=== PATIENT | male | born 1980 | race African-American/Black ===

== ENCOUNTER 2017-08-04 21:26 | Inpatient (IN) | payer OTHER ==
[2017-08-04] MEDS ORDERED: ONDANSETRON 4 MG INJ IV (23:00)
[2017-08-04] MEDS ORDERED: ACETAMINOPHEN 325 MG TAB PO (23:00)
[2017-08-04] MEDS ORDERED: NACL 0.9% 3 ML SYG IV (23:00)
[2017-08-04] MEDS ORDERED: HYDROCODONE/APAP (5/325) TAB PO (23:00)
[2017-08-04 23:49] LABS: RETICULOCYTE RBC 3.16
[2017-08-04 23:49] LABS: RETICULOCYTE COUNT # 0.025 X10^6 (0.020-0.110); RETICULOCYTE COUNT % 0.8 % (0.5-1.5)
[2017-08-05 00:08] LABS: LACTATE DEHYDROGENASE 492 IU/L (313-618)
[2017-08-05 00:09] LABS: LACTIC ACID 1.8 mmol/L (0.5-2.0)
[2017-08-05 00:33] LABS: IRON 45 ug/dl (35-150)
[2017-08-05 00:44] LABS: % IRON SATURATION 18 % SAT (22-52); TOTAL IRON BINDING CAPACITY 250 ug/dl (241-421)
[2017-08-05 02:09] LABS: HEMOGLOBIN A1C 5.2 % (0-5.9)
[2017-08-05 02:48] LABS: WHITE BLOOD COUNT 1.6 10^3/ul (4.8-10.8)
[2017-08-05 02:48] LABS: ABNORMAL IP MESSAGE 1; HEMATOCRIT 27.4 % (42.0-52.0); MEAN CORPUSCULAR HEMOGLOBIN 28.3 pg (29.0-33.0); MEAN CORPUSCULAR HGB CONC 32.8 g/dl (32.0-37.0); MEAN CORPUSCULAR VOLUME 86.2 fl (82.0-101.0); NUCLEATED RED BLOOD CELLS% 1.3 /100WBC (0.0-0.0); PLATELET COUNT 32 10^3/UL (140-415); POSITIVE DIFF @See below; RED BLOOD COUNT 3.18 10^6/ul (4.70-6.10); RED CELL DISTRIBUTION WIDTH 17.3 % (11.5-14.5)
[2017-08-05 02:52] LABS: ADD MAN DIFF? YES; ALANINE AMINOTRANSFERASE 117 IU/L (13-69); ALBUMIN 3.5 g/dl (3.3-4.9); ALBUMIN/GLOBULIN RATIO 0.68; ALKALINE PHOSPHATASE 197 IU/L (42-121); ANION GAP 19 (8-16); ASPARTATE AMINO TRANSFERASE 35 IU/L (15-46); BILIRUBIN,INDIRECT 0.2 mg/dl (0-1.1); BILIRUBIN,TOTAL 0.2 mg/dl (0.2-1.3); BLOOD UREA NITROGEN 12 mg/dl (7-20); CALCIUM 9.2 mg/dl (8.4-10.2); CARBON DIOXIDE 21 mmol/L (21-31); CHLORIDE 108 mmol/L (97-110); CREATININE 0.78 mg/dl (0.61-1.24); GLUCOSE 96 mg/dl (70-220); PATH REVIEW? YES; POTASSIUM 4.3 mmol/L (3.5-5.1); SODIUM 144 mmol/L (135-144); TOTAL PROTEIN 8.6 g/dl (6.1-8.1)
[2017-08-05 03:59] LABS: ANISOCYTOSIS 1+ (0-0); GIANT THROMBO% (M) 3 % (0-0); LYMPHOCYTES % (M) 65 % (15-51); MONOCYTES % (M) 5 % (0-11); PLATELET ESTIMATE DECREASED; POLYCHROMASIA 2+ (0-0); REACTIVE LYMPHOCYTES #M 0.1 10^3/ul (0.0-0.0); REACTIVE LYMPHOCYTES% (M) 12 % (0-0); SEGMENTED NEUTROPHILS (M) % 18 % (39-77); SMUDGE%M 7 % (0-0)
[2017-08-05 06:10] LABS: ADD UMIC YES; UR ASCORBIC ACID NEGATIVE (NEGATIVE); UR BACTERIA FEW /HPF (NONE SEEN); UR BILIRUBIN (Dip) NEGATIVE (NEGATIVE); UR BLOOD (Dip) 2+ mg/dL (NEGATIVE); UR CLARITY CLOUDY (CLEAR); UR COLOR YELLOW (YELLOW); UR GLUCOSE (Dip) NEGATIVE (NEGATIVE); UR KETONES (Dip) NEGATIVE (NEGATIVE); UR LEUKOCYTE ESTERASE (Dip) 3+ Leu/ul (NEGATIVE); UR NITRITE (Dip) NEGATIVE (NEGATIVE); UR RBC 13 /HPF (0-5); UR SPECIFIC GRAVITY (Dip) 1.011 (1.003-1.030); UR SQUAMOUS EPITHELIAL CELL FEW /HPF (FEW); UR TOTAL PROTEIN (Dip) 1+ mg/dl (NEGATIVE); UR UROBILINOGEN (Dip) 2+ mg/dL (NEGATIVE); UR WBC > 182 /HPF (0-5)
[2017-08-05] MEDS: CEFTRIAXONE 2 GM/50 ML (PMX) 50 ML IVPB (06:42)
[2017-08-05 06:48] LABS: CANNABINOIDS Negative (NEGATIVE); OPIATES Negative (NEGATIVE)
[2017-08-05 06:49] LABS: AMPHETAMINE/METHAMPHETAMINE Negative (NEGATIVE); BARBITURATES Negative (NEGATIVE); BENZODIAZEPINES Negative (NEGATIVE); COCAINE Negative (NEGATIVE)
[2017-08-05 08:36] LABS: HAAIG REFLEX REFLEX FILED
[2017-08-05 09:05] LABS: MAGNESIUM 1.7 mg/dl (1.7-2.5)
[2017-08-05 09:05] LABS: PHOSPHORUS 4.8 mg/dl (2.5-4.9)
[2017-08-05 09:10] LABS: INR 1.23; PROTIME 15.7 Sec (11.9-14.9); PT RATIO 1.2
[2017-08-05 09:11] LABS: PARTIAL THROMBOPLASTIN TIME 37.8 Sec (25.0-35.0)
[2017-08-05 09:12] LABS: ETHANOL < 10.0 mg/dl
[2017-08-05 09:34] LABS: HEPATITIS B SURFACE ANTIGEN NEGATIVE (NEGATIVE)
[2017-08-05 09:52] LABS: HEPATITIS B CORE ANTIBODY NEGATIVE (NEGATIVE); HEPATITIS C VIRAL ANTIBODY NEGATIVE (NEGATIVE)
[2017-08-05 10:08] LABS: FOLATE 9.6 ng/ml (2.8-20.0)
[2017-08-05 10:58] LABS: HIV 1&2 ANTIBODY NEGATIVE (NEGATIVE)
[2017-08-06] MEDS: CEFTRIAXONE 2 GM/50 ML (PMX) 50 ML IVPB (05:59)
[2017-08-06 08:10] LABS: ABNORMAL IP MESSAGE 1; HEMATOCRIT 28.8 % (42.0-52.0); HEMOGLOBIN 9.3 g/dl (14.0-18.0); MEAN CORPUSCULAR HGB CONC 32.3 g/dl (32.0-37.0); MEAN CORPUSCULAR VOLUME 86.7 fl (82.0-101.0); MEAN PLATELET VOLUME 9.2 fl (7.4-10.4); PLATELET COUNT 34 10^3/UL (140-415); POSITIVE DIFF @See below; RED BLOOD COUNT 3.32 10^6/ul (4.70-6.10); RED CELL DISTRIBUTION WIDTH 17.2 % (11.5-14.5)
[2017-08-06 08:10] LABS: WHITE BLOOD COUNT 2.1 10^3/ul (4.8-10.8)
[2017-08-06 08:20] LABS: ADD MAN DIFF? YES
[2017-08-06 08:25] LABS: LACTATE DEHYDROGENASE 457 IU/L (313-618)
[2017-08-06 08:27] LABS: ALANINE AMINOTRANSFERASE 92 IU/L (13-69); ALBUMIN 3.5 g/dl (3.3-4.9); ALBUMIN/GLOBULIN RATIO 0.68; ALKALINE PHOSPHATASE 170 IU/L (42-121); ANION GAP 16 (8-16); ASPARTATE AMINO TRANSFERASE 39 IU/L (15-46); BILIRUBIN,INDIRECT 0.2 mg/dl (0-1.1); BILIRUBIN,TOTAL 0.2 mg/dl (0.2-1.3); BLOOD UREA NITROGEN 13 mg/dl (7-20); CALCIUM 9.4 mg/dl (8.4-10.2); CARBON DIOXIDE 27 mmol/L (21-31); CHLORIDE 106 mmol/L (97-110); CREATININE 0.82 mg/dl (0.61-1.24); GLUCOSE 91 mg/dl (70-220); MAGNESIUM 1.7 mg/dl (1.7-2.5); PHOSPHORUS 4.7 mg/dl (2.5-4.9); POTASSIUM 4.3 mmol/L (3.5-5.1); SODIUM 145 mmol/L (135-144); TOTAL PROTEIN 8.6 g/dl (6.1-8.1)
[2017-08-06 10:11] LABS: ANISOCYTOSIS 1+ (0-0); EOSINOPHILS % (M) 1 % (0-7); ERYTHROBLAST% (NRBC) (M) 2 % (0-0); LYMPHOCYTES #M 1.7 10^3/ul (0.8-2.9); LYMPHOCYTES % (M) 84 % (15-51); MICROCYTOSIS 1+ (0-0); MONOCYTES % (M) 3 % (0-11); OVALOCYTES 1+ (0-0); PLASMAC%(M) 1 % (0); PLATELET ESTIMATE SIG DECREASED; POIKILOCYTOSIS 1+ (0-0); POLYCHROMASIA 1+ (0-0); SEGMENTED NEUTROPHILS (M) % 11 % (39-77); SMUDGE%M 10 % (0-0)
[2017-08-07] MEDS ORDERED: INFLUENZA VIRUS VACCINE 0.5 ML (DISPENSING) IM* (09:00)
[2017-08-07 12:31] LABS: PROTEIN, TOTAL 8.1 g/dL (6.1-8.1)
[2017-08-08 15:52] LABS: ALBUMIN 3.1 g/dL (3.8-4.8); ALPHA-1-GLOBULINS 0.6 g/dL (0.2-0.3); ALPHA-2-GLOBULINS 0.9 g/dL (0.5-0.9); BETA 2 GLOBULINS 0.6 g/dL (0.2-0.5); BETA GLOBULINS 0.5 g/dL (0.4-0.6); GAMMA GLOBULINS 2.5 g/dL (0.8-1.7)
[2017-08-08 17:21] LABS: HAPTOGLOBIN 243 mg/dL (43-212)
== END 2017-08-06 14:40 | disposition home or self-care (01) | DRG 433 ==
LOC: TEL 21:26
DX: K70.9 Alcoholic liver disease, unspecified (principal); D61.818 Other pancytopenia; N39.0 Urinary tract infection, site not specified; H54.62 Unqualified visual loss, left eye, normal vision right eye; F10.10 Alcohol abuse, uncomplicated; Y90.0 Blood alcohol level of less than 20 mg/100 ml; N20.0 Calculus of kidney; R16.1 Splenomegaly, not elsewhere classified; F12.10 Cannabis abuse, uncomplicated
CPT/HCPCS: 76700; 80053; 80306; 80307; 81001; 82607; 82728; 82746; 83010; 83036; 83540; 83605; 83615; 83735; 84100; 84155; 84165; 84425; 84443; 85025; 85045; 85610; 85730; 86703; 86704; 86709; 86803; 87081; 87086; 87340

== ENCOUNTER 2017-09-05 03:35 | Inpatient (IN) | payer OTHER ==
[2017-09-05] MEDS: SOD CHLORIDE 0.9% 1,000 ML IV ×3 (04:23→17:50)
[2017-09-05] MEDS ORDERED: morphine 2 MG INJ IV (04:30)
[2017-09-05] MEDS ORDERED: ONDANSETRON 4 MG INJ IV (04:30)
[2017-09-05] MEDS: HYDROCODONE/APAP (10/325) TAB PO (04:30)
[2017-09-05 05:47] LABS: ABNORMAL IP MESSAGE 1; MEAN CORPUSCULAR HEMOGLOBIN 28.8 pg (29.0-33.0); MEAN CORPUSCULAR HGB CONC 33.1 g/dl (32.0-37.0); MEAN PLATELET VOLUME 9.3 fl (7.4-10.4); POSITIVE DIFF @See below; RED BLOOD COUNT 1.84 10^6/ul (4.70-6.10); RED CELL DISTRIBUTION WIDTH 18.2 % (11.5-14.5)
[2017-09-05 05:47] LABS: WHITE BLOOD COUNT 2.3 10^3/ul (4.8-10.8)
[2017-09-05 06:02] LABS: PHOSPHORUS 3.9 mg/dl (2.5-4.9)
[2017-09-05 06:04] LABS: ANION GAP 12 (8-16); BLOOD UREA NITROGEN 14 mg/dl (7-20); CALCIUM 8.5 mg/dl (8.4-10.2); CARBON DIOXIDE 28 mmol/L (21-31); CHLORIDE 108 mmol/L (97-110); CREATININE 0.89 mg/dl (0.61-1.24); GLUCOSE 133 mg/dl (70-220); MAGNESIUM 1.5 mg/dl (1.7-2.5); POTASSIUM 4.2 mmol/L (3.5-5.1); SODIUM 144 mmol/L (135-144)
[2017-09-05 06:15] LABS: HEMOGLOBIN 5.3 g/dl (14.0-18.0); PLATELET COUNT 18 10^3/UL (140-415)
[2017-09-05 06:16] LABS: ADD MAN DIFF? YES
[2017-09-05 09:56] LABS: ANISOCYTOSIS 2+ (0-0); BAND NEUTROPHILS % (M) 2 % (0-4); ERYTHROBLAST% (NRBC) (M) 1 % (0-0); LYMPHOCYTES #M 1.7 10^3/ul (0.8-2.9); LYMPHOCYTES % (M) 74 % (15-51); MICROCYTOSIS 2+ (0-0); PLATELET ESTIMATE SIG DECREASED; POLYCHROMASIA 2+ (0-0); REACTIVE LYMPHOCYTES% (M) 3 % (0-0); SEG NEUT #M 0.5 10^3/ul (1.6-7.5); SEGMENTED NEUTROPHILS (M) % 21 % (39-77); SMUDGE%M 3 % (0-0)
[2017-09-05] MEDS: CEFTRIAXONE 1 GM/50 ML (PMX) 50 ML IVPB ×2 (10:05→20:41)
[2017-09-05 11:22] LABS: CANCER ANTIGEN 19-9 3.6 U/ml (0.0-37.0)
[2017-09-05 11:34] LABS: LACTATE DEHYDROGENASE 673 IU/L (313-618)
[2017-09-05] MEDS: MAGNESIUM SULFATE 3 GM in DEXTROSE 5% 100 ML IVPB (13:00)
[2017-09-05 14:08] LABS: ALPHA FETOPROTEIN < 0.83 IU/L (0.00-7.21)
[2017-09-05 19:19] LABS: HEMATOCRIT 20.9 % (42.0-52.0)
[2017-09-05 19:33] LABS: HEMOGLOBIN 6.7 g/dl (14.0-18.0)
[2017-09-05] MEDS ORDERED: TAMSULOSIN (SR) 0.4 MG CAP PO (21:00)
[2017-09-05] MEDS: TAMSULOSIN (SR) 0.4 MG CAP PO (21:00)
[2017-09-05 22:41] LABS: SECOND ABO/RH TYPE 1 1
[2017-09-06 00:03] LABS: IMMEDIATE SPIN CROSSMATCH 1 3
[2017-09-06] MEDS: SOD CHLORIDE 0.9% 1,000 ML IV ×3 (00:30→13:50)
[2017-09-06 04:51] LABS: HEMATOCRIT 23.1 % (42.0-52.0); HEMOGLOBIN 7.5 g/dl (14.0-18.0)
[2017-09-06 05:09] LABS: ANION GAP 17 (8-16); BLOOD UREA NITROGEN 13 mg/dl (7-20); CARBON DIOXIDE 26 mmol/L (21-31); CHLORIDE 108 mmol/L (97-110); CREATININE 0.86 mg/dl (0.61-1.24); GLUCOSE 100 mg/dl (70-220); POTASSIUM 4.6 mmol/L (3.5-5.1); SODIUM 146 mmol/L (135-144)
[2017-09-06] MEDS: TAMSULOSIN (SR) 0.4 MG CAP PO (08:28)
[2017-09-06] MEDS: CEFTRIAXONE 1 GM/50 ML (PMX) 50 ML IVPB (09:24)
[2017-09-06 13:16] LABS: ABNORMAL IP MESSAGE 1; HEMATOCRIT 29.1 % (42.0-52.0); HEMOGLOBIN 9.6 g/dl (14.0-18.0); MEAN CORPUSCULAR HEMOGLOBIN 28.5 pg (29.0-33.0); MEAN CORPUSCULAR VOLUME 86.4 fl (82.0-101.0); MEAN PLATELET VOLUME 8.7 fl (7.4-10.4); PLATELET COUNT 36 10^3/UL (140-415); POSITIVE DIFF @See below; RED BLOOD COUNT 3.37 10^6/ul (4.70-6.10); RED CELL DISTRIBUTION WIDTH 17.2 % (11.5-14.5)
[2017-09-06 13:20] LABS: ADD MAN DIFF? YES
[2017-09-06 15:36] LABS: ANISOCYTOSIS 2+ (0-0); BAND NEUTROPHILS % (M) 2 % (0-4); HYPOCHROMASIA 1+ (0-0); LYMPHOCYTES #M 2.2 10^3/ul (0.8-2.9); LYMPHOCYTES % (M) 75 % (15-51); MICROCYTOSIS 2+ (0-0); MONOCYTES % (M) 2 % (0-11); PLATELET ESTIMATE SIG DECREASED; POIKILOCYTOSIS 1+ (0-0); POLYCHROMASIA 2+ (0-0); REACTIVE LYMPHOCYTES #M 0.2 10^3/ul (0.0-0.0); REACTIVE LYMPHOCYTES% (M) 8 % (0-0); SEG NEUT #M 0.4 10^3/ul (1.6-7.5); SEGMENTED NEUTROPHILS (M) % 13 % (39-77); SMUDGE%M 20 % (0-0)
== END 2017-09-06 15:00 | disposition home or self-care (01) | DRG 694 ==
LOC: MS2 03:35
PROVIDERS: Internal Medicine
PROC: 30233N1 Transfusion of Nonautologous Red Blood Cells into Peripheral Vein, Percutaneous Approach (ICD-10-PCS; principal; 2017-09-05)
PROC: 6A550Z2 Pheresis of Platelets, Single (ICD-10-PCS; 2017-09-05)
DX: N20.0 Calculus of kidney (principal); D61.818 Other pancytopenia; F10.20 Alcohol dependence, uncomplicated; R16.1 Splenomegaly, not elsewhere classified; K70.9 Alcoholic liver disease, unspecified
CPT/HCPCS: 36430; 74176; 80048; 82105; 82378; 83615; 83735; 84100; 85014; 85018; 85025; 86301; 86644; 86850; 86900; 86901; 86920; 86945; 87086

== ENCOUNTER 2017-10-08 21:54 | Inpatient (IN) | payer OTHER ==
[2017-10-08] MEDS ORDERED: morphine 2 MG INJ IV (23:00)
[2017-10-08] MEDS ORDERED: ONDANSETRON 4 MG INJ IV (23:00)
[2017-10-08] MEDS ORDERED: ACETAMINOPHEN 325 MG TAB PO (23:00)
[2017-10-09 01:08] LABS: WHITE BLOOD COUNT 1.6 10^3/ul (4.8-10.8)
[2017-10-09 01:08] LABS: ABNORMAL IP MESSAGE 1; HEMATOCRIT 23.3 % (42.0-52.0); HEMOGLOBIN 7.8 g/dl (14.0-18.0); MEAN CORPUSCULAR HGB CONC 33.5 g/dl (32.0-37.0); MEAN CORPUSCULAR VOLUME 86.6 fl (82.0-101.0); MEAN PLATELET VOLUME 10.5 fl (7.4-10.4); POSITIVE DIFF @See below; RED BLOOD COUNT 2.69 10^6/ul (4.70-6.10); RED CELL DISTRIBUTION WIDTH 16.7 % (11.5-14.5)
[2017-10-09 01:31] LABS: ANION GAP 10 (8-16); BLOOD UREA NITROGEN 17 mg/dl (7-20); CALCIUM 8.4 mg/dl (8.4-10.2); CARBON DIOXIDE 29 mmol/L (21-31); CHLORIDE 107 mmol/L (97-110); CREATININE 0.85 mg/dl (0.61-1.24); GLUCOSE 101 mg/dl (70-220); MAGNESIUM 1.7 mg/dl (1.7-2.5); PHOSPHORUS 4.6 mg/dl (2.5-4.9); POTASSIUM 3.6 mmol/L (3.5-5.1); SODIUM 142 mmol/L (135-144)
[2017-10-09 01:41] LABS: PLATELET COUNT 30 10^3/UL (140-415)
[2017-10-09 01:42] LABS: ADD MAN DIFF? YES
[2017-10-09 05:16] LABS: ACANTHOCYTES 1+ (0-0); ANISOCYTOSIS 1+ (0-0); ERYTHROBLAST% (NRBC) (M) 1 % (0-0); HYPOCHROMASIA 1+ (0-0); LYMPHOCYTES #M 1.1 10^3/ul (0.8-2.9); LYMPHOCYTES % (M) 70 % (15-51); MONOCYTES % (M) 1 % (0-11); OVALOCYTES 1+ (0-0); PLATELET ESTIMATE DECREASED; POIKILOCYTOSIS 1+ (0-0); POLYCHROMASIA 1+ (0-0); REACTIVE LYMPHOCYTES% (M) 3 % (0-0); SEGMENTED NEUTROPHILS (M) % 26 % (39-77); SMUDGE%M 4 % (0-0)
[2017-10-09] MEDS ORDERED: ONDANSETRON 4 MG INJ IV (08:30)
[2017-10-09] MEDS ORDERED: NACL 0.9% 3 ML SYG IV (08:30)
[2017-10-09] MEDS ORDERED: ACETAMINOPHEN 325 MG TAB PO (08:30)
[2017-10-09] MEDS ORDERED: ALBUTEROL/IPRATROPIUM (NEB) 3 ML AMP HHN (08:30)
[2017-10-09] MEDS: CEFTRIAXONE 1 GM/50 ML (PMX) 50 ML IVPB (09:21)
[2017-10-09] MEDS: FUROSEMIDE 20 MG INJ IV (09:24)
[2017-10-09] MEDS: FILGRASTIM 300 MCG INJ SC (11:03)
[2017-10-09 13:30] LABS: URIC ACID 6.6 mg/dl (3.1-7.9)
[2017-10-09 13:37] LABS: INR 1.26; PARTIAL THROMBOPLASTIN TIME 35.2 Sec (25.0-35.0); PT RATIO 1.3
[2017-10-09 17:54] LABS: ADD UMIC YES; UR ASCORBIC ACID NEGATIVE (NEGATIVE); UR BACTERIA FEW /HPF (NONE SEEN); UR BILIRUBIN (Dip) NEGATIVE (NEGATIVE); UR BLOOD (Dip) 3+ mg/dL (NEGATIVE); UR CLARITY CLEAR (CLEAR); UR COLOR YELLOW (YELLOW); UR GLUCOSE (Dip) NEGATIVE (NEGATIVE); UR KETONES (Dip) NEGATIVE (NEGATIVE); UR LEUKOCYTE ESTERASE (Dip) 3+ Leu/ul (NEGATIVE); UR NITRITE (Dip) NEGATIVE (NEGATIVE); UR RBC 8 /HPF (0-5); UR SPECIFIC GRAVITY (Dip) 1.006 (1.003-1.030); UR SQUAMOUS EPITHELIAL CELL FEW /HPF (FEW); UR TOTAL PROTEIN (Dip) NEGATIVE (NEGATIVE); UR UROBILINOGEN (Dip) 1+ mg/dL (NEGATIVE); UR WBC 49 /HPF (0-5)
[2017-10-09] MEDS: FUROSEMIDE 40 MG INJ IV (19:40)
[2017-10-09 21:00] LABS: TYPE AND SCREEN 1
[2017-10-09] MEDS: morphine 2 MG INJ IV (22:03)
[2017-10-09 23:39] LABS: IMMEDIATE SPIN CROSSMATCH 1 2
[2017-10-10 05:47] LABS: ABNORMAL IP MESSAGE 1; HEMATOCRIT 27.1 % (42.0-52.0); HEMOGLOBIN 8.8 g/dl (14.0-18.0); MEAN CORPUSCULAR HEMOGLOBIN 28.7 pg (29.0-33.0); MEAN CORPUSCULAR HGB CONC 32.5 g/dl (32.0-37.0); MEAN CORPUSCULAR VOLUME 88.3 fl (82.0-101.0); MEAN PLATELET VOLUME 10.1 fl (7.4-10.4); NUCLEATED RED BLOOD CELLS% 0.7 /100WBC (0.0-0.0); PLATELET COUNT 40 10^3/UL (140-415); POSITIVE DIFF @See below; RED BLOOD COUNT 3.07 10^6/ul (4.70-6.10)
[2017-10-10 05:47] LABS: WHITE BLOOD COUNT 2.9 10^3/ul (4.8-10.8)
[2017-10-10 05:48] LABS: ADD MAN DIFF? YES
[2017-10-10 06:26] LABS: ALANINE AMINOTRANSFERASE 73 IU/L (13-69); ALBUMIN 3.3 g/dl (3.3-4.9); ALKALINE PHOSPHATASE 256 IU/L (42-121); ANION GAP 15 (8-16); ASPARTATE AMINO TRANSFERASE 69 IU/L (15-46); BILIRUBIN,INDIRECT 0.8 mg/dl (0-1.1); BILIRUBIN,TOTAL 0.8 mg/dl (0.2-1.3); BLOOD UREA NITROGEN 16 mg/dl (7-20); CALCIUM 8.5 mg/dl (8.4-10.2); CARBON DIOXIDE 30 mmol/L (21-31); CHLORIDE 103 mmol/L (97-110); CREATININE 0.87 mg/dl (0.61-1.24); GLUCOSE 88 mg/dl (70-220); MAGNESIUM 1.6 mg/dl (1.7-2.5); POTASSIUM 3.7 mmol/L (3.5-5.1); SODIUM 144 mmol/L (135-144)
[2017-10-10 07:21] LABS: ANISOCYTOSIS 1+ (0-0); BAND NEUTROPHILS #M 0.1 10^3/ul (0.0-0.6); BAND NEUTROPHILS % (M) 6 % (0-4); HYPOCHROMASIA 1+ (0-0); LYMPHOCYTES #M 1.9 10^3/ul (0.8-2.9); LYMPHOCYTES % (M) 68 % (15-51); MONOCYTES % (M) 3 % (0-11); OVALOCYTES 1+ (0-0); PLATELET ESTIMATE DECREASED; SEG NEUT #M 0.6 10^3/ul (1.6-7.5); SEGMENTED NEUTROPHILS (M) % 19 % (39-77); SMUDGE%M 9 % (0-0)
[2017-10-10] MEDS: CEFTRIAXONE 1 GM/50 ML (PMX) 50 ML IVPB (09:01)
[2017-10-10] MEDS: FUROSEMIDE 20 MG INJ IV (09:01)
[2017-10-10] MEDS: MAGNESIUM SULFATE 2 GM/50 ML 50 ML IVPB (11:45)
[2017-10-10] MEDS: SOD CHLORIDE 0.9% 250 ML IV* (14:00)
[2017-10-10] MEDS: FILGRASTIM 300 MCG INJ SC (14:13)
[2017-10-10] MEDS ORDERED: morphine LIQ (10 MG/5 ML) CUP PO ×2 (17:30)
[2017-10-11 05:46] LABS: WHITE BLOOD COUNT 2.5 10^3/ul (4.8-10.8)
[2017-10-11 05:46] LABS: ABNORMAL IP MESSAGE 1; HEMATOCRIT 26.9 % (42.0-52.0); HEMOGLOBIN 8.8 g/dl (14.0-18.0); MEAN CORPUSCULAR HEMOGLOBIN 28.8 pg (29.0-33.0); MEAN CORPUSCULAR HGB CONC 32.7 g/dl (32.0-37.0); MEAN CORPUSCULAR VOLUME 87.9 fl (82.0-101.0); MEAN PLATELET VOLUME 10.8 fl (7.4-10.4); PLATELET COUNT 40 10^3/UL (140-415); POSITIVE DIFF @See below; RED BLOOD COUNT 3.06 10^6/ul (4.70-6.10); RED CELL DISTRIBUTION WIDTH 16.2 % (11.5-14.5)
[2017-10-11 05:53] LABS: ADD MAN DIFF? YES
[2017-10-11 06:42] LABS: ANISOCYTOSIS 1+ (0-0); BAND NEUTROPHILS #M 0.1 10^3/ul (0.0-0.6); BAND NEUTROPHILS % (M) 4 % (0-4); DIMORPHIC RBC 2+ (0-0); ERYTHROBLAST% (NRBC) (M) 1 % (0-0); GIANT THROMBO% (M) 1 % (0-0); LYMPHOCYTES #M 1.7 10^3/ul (0.8-2.9); LYMPHOCYTES % (M) 68 % (15-51); MICROCYTOSIS 1+ (0-0); MONOCYTES % (M) 3 % (0-11); PLATELET ESTIMATE SIG DECREASED; POIKILOCYTOSIS 1+ (0-0); POLYCHROMASIA 3+ (0-0); REACTIVE LYMPHOCYTES #M 0.1 10^3/ul (0.0-0.0); REACTIVE LYMPHOCYTES% (M) 7 % (0-0); SEG NEUT #M 0.5 10^3/ul (1.6-7.5); SEGMENTED NEUTROPHILS (M) % 18 % (39-77); SMUDGE%M 7 % (0-0)
[2017-10-11] MEDS: CEFTRIAXONE 1 GM/50 ML (PMX) 50 ML IVPB (08:44)
[2017-10-11] MEDS: FUROSEMIDE 20 MG INJ IV (08:45)
== END 2017-10-11 13:06 | disposition home or self-care (01) | DRG 810 ==
LOC: MS1 21:54
PROC: 30233R1 Transfusion of Nonautologous Platelets into Peripheral Vein, Percutaneous Approach (ICD-10-PCS; principal; 2017-10-09)
PROC: 30233N1 Transfusion of Nonautologous Red Blood Cells into Peripheral Vein, Percutaneous Approach (ICD-10-PCS; 2017-10-09)
DX: D61.818 Other pancytopenia (principal); E87.70 Fluid overload, unspecified; N20.0 Calculus of kidney; R60.9 Edema, unspecified; R14.0 Abdominal distension (gaseous); R31.9 Hematuria, unspecified; R16.2 Hepatomegaly with splenomegaly, not elsewhere classified; F10.10 Alcohol abuse, uncomplicated; Z87.440 Personal history of urinary (tract) infections; Z86.59 Personal history of other mental and behavioral disorders
CPT/HCPCS: 36430; 71045; 76705; 80048; 80053; 81001; 83735; 84100; 84560; 85025; 85610; 85730; 86644; 86850; 86900; 86901; 86920; 86945; 87086